=== PATIENT | female | born 1980 | race Caucasian/White ===

== ENCOUNTER 2020-03-04 23:30 | Emergency (ER) | payer MEDICAID ==
[2020-03-04] MEDS ORDERED: Sodium Chloride 0.9% 1,000 ML IV SCH (23:45)
--- NOTE | 2020-03-04 23:58 | EDM.PDOC ---
ED HPI GENERAL MEDICAL PROBLEM - General Chief Complaint: CAR DRYER Problem Stated Complaint: MEDICAL VIA NORTH Time Seen by Provider: 03/04/20 23:54 Source of Information: Reports: Patient History Limitations: Reports: No Limitations - History of Present Illness INITIAL COMMENTS - FREE TEXT/NARRATIVE: 1` onth ago pt had a miscarriage at 20 weeks. She has had bleeding since that time. She has a history of large fibriods. She has had 3 pregnancies and has miscarried all of them. She has no living children. She started suddenly tonight to bleed very heavily. When she did miscarry she had a d and c and they felt like all of the tissue was gotten. She has bled almost all month but not to this degree. Onset: Today, Sudden Duration: Hour(s): Location: Reports: Generalized Associated Symptoms: Reports: Weakness Abdomen Pain Score (Numeric/FACES): 6 - Related Data Allergies Allergy/AdvReac Type Severity Reaction Status Date / Time Penicillins Allergy Hives Verified 03/04/20 23:50 poppyseed oil Allergy Itching Verified 03/04/20 23:50 Home Meds: Home Meds Cyclobenzaprine [Flexeril] 10 mg PO ASDIRECTED 03/04/20 [History] Levothyroxine 75 mcg PO DAILY 03/04/20 [History] Sertraline [Zoloft] 50 mg PO DAILY 03/04/20 [History] Tranexamic Acid 1 tab PO ASDIRECTED 03/04/20 [History] Social & Family History - Tobacco Use Smoking Status *Q: Light Tobacco Smoker Years of Tobacco use: 20 Packs/Tins Daily: 0.5 - Caffeine Use Caffeine Use: Reports: Coffee - Recreational Drug Use Recreational Drug Use: No ED ROS GENERAL - Review of Systems Review Of Systems: See Below Constitutional: Reports: No Symptoms HEENT: Reports: No Symptoms Respiratory: Reports: No Symptoms Cardiovascular: Reports: No Symptoms Endocrine: Reports: No Symptoms GI/Abdominal: Reports: Abdominal Pain, Other (pt is cramping severely. ) : Reports: No Symptoms Musculoskeletal: Reports: No Symptoms Skin: Reports: No Symptoms Neurological: Reports: No Symptoms ED EXAM - Physical Exam Exam: See Below Text/Narrative:: pt arrived with very heavy vag bleeding. She started suddenly this pm. She has passed alot of large clots. She is cramping with the bleeding. Exam Limited By: No Limitations General Appearance: Alert, Anxious, Mild Distress Ears: Normal TMs Nose: Normal Inspection Throat/Mouth: Normal Inspection Head: Atraumatic Neck: Normal Inspection Respiratory/Chest: No Respiratory Distress Cardiovascular: Regular Rate, Rhythm, Tachycardia GI/Abdominal Exam: Other ( crampy abdomanal pain) Rectal Exam: Deferred (Female) Exam: Other (pelvic exam reveals very heavy bleeding with large clots present. She has a tight cervix with no tissue. She had a miscarriage 1 month ago. She has multiple large fibroids present. ) Back Exam: Normal Inspection Extremities: Normal Inspection Neurological: Alert, Oriented, Normal Cognition Psychiatric: Normal Affect Course - Vital Signs Last Recorded V/S: Last Vital Signs Temp 37.3 C 03/04/20 23:46 Pulse 101 H 03/05/20 01:21 Resp 12 03/05/20 01:21 BP 133/85 03/05/20 01:21 Pulse Ox 97 03/05/20 01:21 - Orders/Labs/Meds Orders: Active Orders 24 hr Category Date Time Status Pelvis Non OB Ltd [US] Stat Exams 03/05/20 00:28 Taken TYPE AND SCREEN [BBK] Stat Lab 03/05/20 00:13 Ordered Sodium Chloride 0.9% [Normal Saline] 1,000 ml Med 03/04/20 23:45 Active IV ASDIRECTED Medication Orders Sodium Chloride (Normal Saline) 1,000 mls @ 999 mls/hr IV ASDIRECTED JAQUELINE Last Admin: 03/05/20 00:29 Dose: 999 mls/hr Documented by: ARIK Labs: Laboratory Tests 03/04/20 03/04/20 03/05/20 Range/Units 23:54 23:54 01:20 WBC 14.2 H (4.5-11.0) K/uL RBC 4.37 (3.30-5.50) M/uL Hgb 11.4 L 10.4 L (12.0-15.0) g/dL Hct 37.1 (36.0-48.0) % MCV 85 (80-98) fL MCH 26 L (27-31) pg MCHC 31 L (32-36) % Plt Count 307 (150-400) K/uL Neut % (Auto) 76 H (36-66) % Lymph % (Auto) 12 L (24-44) % Real % (Auto) 12 H (2-6) % Eos % (Auto) 1 L (2-4) % Baso % (Auto) 0 (0-1) % APTT 27.2 (27.0-36.0) sec 03/05/20 Range/Units 01:20 WBC (4.5-11.0) K/uL RBC (3.30-5.50) M/uL Hgb (12.0-15.0) g/dL Hct 33.7 L (36.0-48.0) % MCV (80-98) fL MCH (27-31) pg MCHC (32-36) % Plt Count (150-400) K/uL Neut % (Auto) (36-66) % Lymph % (Auto) (24-44) % Real % (Auto) (2-6) % Eos % (Auto) (2-4) % Baso % (Auto) (0-1) % APTT (27.0-36.0) sec Meds: Medications Generic Name Dose Route Start Last Admin Trade Name Freq PRN Reason Stop Dose Admin Sodium Chloride 1,000 mls @ 999 mls/hr 03/04/20 23:45 03/05/20 00:29 Normal Saline IV 999 mls/hr ASDIRECTED JAQUELINE Administration Discontinued Medications Generic Name Dose Route Start Last Admin Trade Name Freq PRN Reason Stop Dose Admin Estrogens Conjugated 2.5 mg 03/05/20 01:22 Premarin PO 03/05/20 01:23 ONETIME ONE Hydromorphone HCl 0.5 mg 03/05/20 00:18 03/05/20 00:28 Dilaudid IVPUSH 03/05/20 00:19 0.5 mg ONETIME ONE Administration - Re-Assessments/Exams Free Text/Narrative Re-Assessment/Exam: 03/05/20 01:13 hg is 11.3. She continues to pas large clots. US was donme which was difficult because of the massive fibroids present. Retained tissue would be very difficult to see. Her uterus with the fibroids is at a 20 week size. 03/05/20 01:32 The case was discussed with Dr Singer and he suggested that she be given a large dose of premarin orally. She will be transfered to his care in . Departure - Departure Time of Disposition: :29 Disposition: DC/Tfer to Acute Hospital 02 Condition: Fair Clinical Impression: Episode of heavy vaginal bleeding, History of recurrent miscarriages, Uterine fibroid, Anemia - Discharge Information Referrals: PCP,None [Primary Care Provider] - Forms: ED Department Discharge Care Plan Goals: transfer to [facility]-- Dr Sandor singer Sepsis Event Note (ED) - Evaluation Sepsis Screening Result: No Definite Risk - Focused Exam Vital Signs: Vital Signs Temp Pulse Resp BP Pulse Ox 03/05/20 01:21 101 H 12 133/85 97 03/05/20 00:27 100 149/86 H 03/04/20 23:46 37.3 C 95 16 176/89 H 97 - My Orders Last 24 Hours: My Active Orders 03/04/20 23:45 Sodium Chloride 0.9% [Normal Saline] 1,000 ml IV ASDIRECTED 03/05/20 00:13 TYPE AND SCREEN [BBK] Stat 03/05/20 00:28 Pelvis Non OB Ltd [US] Stat - Assessment/Plan Last 24 Hours: My Active Orders 03/04/20 23:45 Sodium Chloride 0.9% [Normal Saline] 1,000 ml IV ASDIRECTED 03/05/20 00:13 TYPE AND SCREEN [BBK] Stat 03/05/20 00:28 Pelvis Non OB Ltd [US] Stat
[2020-03-05] MEDS ORDERED: HYDROmorphone 0.5 MG/0.5 ML Syringe IVPUSH ONE ×2 (00:18→01:47)
--- NOTE | 2020-03-05 01:38 | CRLUS ---
INDICATION: Vaginal bleeding, history of miscarriage 1 month ago with D and C. TECHNIQUE: Ultrasound pelvis transabdominal. Real-time sonographic images with spectral and color Doppler imaging of the ovaries were obtained. COMPARISON: August 10, 2013 FINDINGS: Uterus: 17.4 x 9.6 x 7.8 cm. Normal echotexture of the myometrium. Multiple uterine masses measuring up to 6.6 x 6.3 x 6.6 cm. Endometrium: Not seen due to multiple uterine masses. Neither ovary was visualized. Cul-de-sac: No significant free fluid. IMPRESSION: Enlarged uterus with multiple uterine fibroids measuring up to 6.6 cm in diameter. The endometrium, right ovary, and left ovary were not visualized on this exam. Dictated by Coty Barajas MD @ Mar 05 2020 1:33AM Signed by Dr. Coty Barajas @ Mar 05 2020 1:35AM
[2020-03-05] MEDS ORDERED: Sodium Chloride 0.9% 1,000 ML IV SCH (01:45)
[2020-03-05] MEDS ORDERED: HYDROmorphone 0.5 MG/0.5 ML Syringe ONE (01:54)
== END 2020-03-05 02:15 ==
LOC: JP.ED 23:30
DX: N93.9 Abnormal uterine and vaginal bleeding, unspecified (principal); D25.9 Leiomyoma of uterus, unspecified; D64.9 Anemia, unspecified; F17.210 Nicotine dependence, cigarettes, uncomplicated; Z87.59 Personal history of other complications of pregnancy, childbirth and the puerperium; Z88.0 Allergy status to penicillin; Z91.018 Allergy to other foods
CPT/HCPCS: 36415; 76857; 85014; 85018; 85025; 85730; 86850; 86900; 86901; 96374; 96376; 99285; A9270; J1170; J7030